=== PATIENT | female | born 1965 | race Caucasian/White ===

== ENCOUNTER 2016-11-18 07:11 | Day surgery (SDC) | payer OTHER ==
[~2016-11-18 07:11] MED LIST: AMBIEN PAK5 MG PO; AMITRIPTYLINE H25 M1 PO; ESTRACE1 M3 PO; FISH OIL; HAIR, SKIN & N1 EAC1 PO; HYDROCODON-ACE1 EAC7 PO; IBUPROFEN200 M2 PO; MELATONIN10 M4 PO; RELAFEN500 MG PO; VITAMIN B-12250 MC2 PO; VITAMIN C1000 M1 PO; ZICAM
[2016-11-18 07:38] LABS: BASO % 0.8 % (0-2); EOS % 2.9 % (0-7); EOSINOPHIL ABSOLUTE COUNT 0.1 tho/cmm (0.0-0.7); HCT-HEMATOCRIT 40.2 % (34.0-49.0); HGB-HEMOGLOBIN 13.5 gm/dl (12.0-15.5); IMMATURE GRANULOCYTES ABSOLUTE 0.01 tho/cmm (0-0.03); IMMATURE GRANULOCYTES PERCENT 0.3 % (0-0.3); LYMPH % 37.1 % (20-45); LYMPH ABSOLUTE COUNT 1.4 tho/cmm (0.8-4.5); MCH (MEAN CORPUSCULAR HGB) 29.7 pg (28.0-32.0); MCHC MEAN CORPUSCULAR HGB CONC 33.6 % (32.0-36.0); MCV (MEAN CELL VOLUME) 88.5 fl (82.0-96.0); MEAN PLATELET VOLUME 9.6 cmc (9.4-12.4); MONO % 8.4 % (0-12); MONOCYTE ABSOLUTE COUNT 0.3 tho/cmm (0.0-1.2); NEUTROPHIL ABSOLUTE COUNT 1.9 tho/cmm (1.6-8.0); NEUTROPHIL-AUTOMATED 1.9 tho/cmm (1.6-8.0); NEUTROPHILS % 50.5 % (40-80); PLATELET COUNT 191 tho/cmm (150-450); RED BLOOD COUNT 4.54 mil/cmm (4.00-5.20); RED CELL DISTRIBUTION WIDTH 14.5 % (12.4-16.4); WHITE BLOOD COUNT 3.8 tho/cmm (4.0-10.0)
== END 2016-11-18 13:00 ==
LOC: WSU 07:11 → SHSB 07:15 → ORW 09:34 → PACU 10:02 → SHSB 10:25
PROVIDERS: Obstetrics & Gynecology
PROC: 0JQC0ZZ Repair Pelvic Region Subcutaneous Tissue and Fascia, Open Approach (ICD-10-PCS; principal; 2016-11-18)
DX: N81.11 Cystocele, midline (principal); Z79.899 Other long term (current) drug therapy; Z98.890 Other specified postprocedural states